=== PATIENT | male | born 1955 | race Caucasian/White ===

== ENCOUNTER 2021-02-27 11:58 | Emergency (ER) | payer OTHER ==
[~2021-02-27] VITALS: Ht 190.5 cm; Wt 88.6 kg
[~2021-02-27 11:58] MED LIST: ADVIL200 MG PO; ASPIRIN 81M81 MG/TA2 PO; SYNTHROID0.1 MG/TAB PO; THYROX PO; ULTRAM100 MG PO
[2021-02-27 12:05] VITALS: TEMP 98.1
[2021-02-27 14:50] VITALS: BP 146/96; PULSE 69
== END 2021-02-27 14:50 | disposition home or self-care (01) ==
LOC: COL.ER 11:58
DX: S01.01XA Laceration without foreign body of scalp, initial encounter (principal); E07.9 Disorder of thyroid, unspecified; Z79.890 Hormone replacement therapy; W20.8XXA Other cause of strike by thrown, projected or falling object, initial encounter; Y99.0 Civilian activity done for income or pay

== ENCOUNTER 2021-05-09 08:14 | Emergency (ER) | payer OTHER ==
[~2021-05-09] VITALS: Ht 190.5 cm; Wt 85.9 kg
[2021-05-09 08:25] VITALS: TEMP 97.7
[2021-05-09 09:00] LABS: HEMATOCRIT 47.4 % (42.0-52.0); HEMOGLOBIN 16.1 g/dl (13.5-18.0); MEAN CELL VOLUME 85 fl (80.0-100.0); MEAN CORPUSCULAR HEMOGLOBIN 29 pg (27.0-31.0); MEAN CORPUSCULAR HGB CONC 34 g/dl (33.0-37.0); MEAN PLATELET VOLUME 11.3 fl (7.4-10.4); PLATELET COUNT 125 K/mm3 (130-400); RED BLOOD COUNT 5.59 M/mm3 (4.20-5.60); REDCELL DISTRIBUTION WIDTH-CV 12.9 % (11.5-14.5)
[2021-05-09 09:02] LABS: MAGNESIUM 1.9 mg/dL (1.6-2.3); PHOSPHOROUS 2.9 mg/dL (2.5-4.5)
[2021-05-09 09:05] LABS: ALANINE AMINOTRANSFERASE 28 U/L (4-49); ALBUMIN 3.9 gm/dL (3.5-5.0); ALKALINE PHOSPHATASE 79 U/L (50-136); ANION GAP 8 mmol/L (7-16); AST,SGOT 62 U/L (15-37); BILIRUBIN,TOTAL 0.8 mg/dL (0.0-1.0); BLOOD UREA NITROGEN 22 mg/dL (9-20); CALCIUM 8.7 mg/dL (8.4-10.2); CARBON DIOXIDE 29 mmol/L (22-30); CHLORIDE 94 mmol/L (98-107); CREATININE, serum 0.83 (0.66-1.25); GLUCOSE 142 mg/dL (74-106); POTASSIUM 3.7 mmol/L (3.4-5.0); SODIUM 131 mmol/L (137-145); TOTAL PROTEIN 7.4 gm/dL (6.4-8.2)
[2021-05-09 09:18] LABS: TROPONIN-I < 0.012 ng/mL (0.000-0.035)
[2021-05-09 09:28] LABS: LYMPHOCYTE 15 % (20.0-51.0); PLATELET ESTIMATE DECREASED (NORMAL)
[2021-05-09 09:29] LABS: BAND 7 % (0-10); NEUTROPHILS 75 % (42.0-75.2)
[2021-05-09 10:34] VITALS: BP 122/77; PULSE 65
== END 2021-05-09 10:49 | disposition home or self-care (01) ==
LOC: COL.ER 08:14
PROVIDERS: Student in an Organized Health Care Education/Training Program
DX: U07.1 COVID-19 (principal); E87.1 Hypo-osmolality and hyponatremia
CPT/HCPCS: J7030